=== PATIENT | male | born 1975 | race African-American/Black ===

== ENCOUNTER 2016-07-11 07:03 | Outpatient (RCR) | payer BC | END 2016-07-16 | LOC: M PT 07:03 | PROVIDERS: ATTEND Student in an Organized Health Care Education/Training Program | DX: Z51.89 Encounter for other specified aftercare (principal); M17.0 Bilateral primary osteoarthritis of knee ==

== ENCOUNTER → 2016-08-16 | Outpatient (RCR) | payer BC | LOC: M PT 07-18 07:35 | PROVIDERS: ATTEND Student in an Organized Health Care Education/Training Program | DX: Z51.89 Encounter for other specified aftercare (principal); M17.0 Bilateral primary osteoarthritis of knee ==

== ENCOUNTER 2016-08-23 07:18 | Outpatient (RCR) | payer BC | END 2016-09-15 | disposition home or self-care (01) | LOC: M PT 07:18 | PROVIDERS: ATTEND Student in an Organized Health Care Education/Training Program | DX: Z51.89 Encounter for other specified aftercare (principal); M17.0 Bilateral primary osteoarthritis of knee ==

== ENCOUNTER 2019-04-15 17:15 | Emergency (ER) | payer BC, SELFPAY ==
[~2019-04-15] VITALS: Ht 188 cm; Wt 127.6 kg
--- NOTE | 2019-04-15 20:52 | REPVR ---
PROCEDURE INFORMATION: Exam: US Duplex Right Lower Extremity Veins, Limited Exam date and time: 04/15/2019 8:38 PM Age: 43 years old Clinical indication: Pain; Leg, lower; Right; Additional info: Leg, foot, calf pain TECHNIQUE: Imaging protocol: Real-time Duplex ultrasound of the Right Lower Extremity with 2-D cavazos scale, color Doppler flow and spectral waveform analysis with image documentation. Limited exam was focused on the right lower extremity veins. COMPARISON: No relevant prior studies available. FINDINGS: Right deep veins: Unremarkable. The common femoral, femoral, proximal profunda femoral and popliteal veins are patent without thrombus. Normal Doppler waveforms. Normal compressibility and/or augmentation response. Right superficial veins: Unremarkable. Saphenofemoral junction is patent without thrombus. Soft tissues: Unremarkable. IMPRESSION: No DVT of the right lower extremity. Electronically signed by: Xavier Chavira On 04/15/2019 20:51:31 PM
[2019-04-15] MEDS ORDERED: NAPR-837 PO (21:54)
[2019-04-15] MEDS ORDERED: ANEC4CRE3 TOP (21:54)
[2019-04-15 21:57] VITALS: BP 120/83
[2019-04-15] MEDS ORDERED: NAPROXEN 250 MG TAB PO ONE (22:00)
--- NOTE | 2019-04-16 02:09 | REP ---
Clinical: Pain and tenderness. Technique: AP and lateral views of the right ankle. Findings: Generalized age-related changes are appreciated. No acute fracture dislocation. No soft tissue swelling. Ankle mortise appears intact. Impression: Nonspecific age-related changes. Electronically Signed by Terry Moore MD 04/16/2019 02:01 A
--- NOTE | 2019-04-17 02:13 | REP ---
Clinical: Pain and tenderness Technique: AP, lateral, bilateral oblique views right foot . Findings: The osseous structures and joint spaces are intact and essentially age-appropriate. There is no evidence for acute fracture or dislocation. Surrounding soft tissues are unremarkable. No subcutaneous emphysema or radiodense foreign body. Impression: Age-appropriate right foot series. No obvious acute or significant pathology appreciated by radiographic evaluation. Electronically Signed by Terry Moore MD 04/17/2019 02:05 A
== END 2019-04-15 22:10 | disposition home or self-care (01) ==
LOC: M ED 17:15
DX: M77.31 Calcaneal spur, right foot (principal); M25.571 Pain in right ankle and joints of right foot; Z88.5 Allergy status to narcotic agent

== ENCOUNTER → 2021-03-31 | Outpatient (REF) ==
[~2021-03-31] MED LIST: ANEC4CRE3 TOP; NAPR-837 PO
== END ==
LOC: M LABSMTC 09:46
PROVIDERS: ATTEND Pediatrics
DX: Z20.822 Contact with and (suspected) exposure to COVID-19 (principal)

== ENCOUNTER 2024-01-29 15:02 | Emergency (ER) | payer SELFPAY ==
[~2024-01-29] VITALS: Ht 188 cm; Wt 122.9 kg
[2024-01-29] MEDS: methocarbamoL 500 MG TAB PO ONE (19:48)
[2024-01-29] MEDS: KETOROLAC 60MG 2ML VIAL IM ONE (19:48)
[2024-01-29] MEDS ORDERED: METH-1164 PO (22:19)
[2024-01-29] MEDS ORDERED: IBUP-1022 PO (22:19)
[2024-01-29] MEDS ORDERED: PRED20TA PO (22:19)
[2024-01-29 22:26] VITALS: BP 137/65; TEMP 97.8; O2SAT 98
== END 2024-01-29 22:28 | disposition home or self-care (01) ==
LOC: M ED 15:02
DX: M54.50 Low back pain, unspecified (principal); V49.40XA Driver injured in collision with unspecified motor vehicles in traffic accident, initial encounter; Y92.410 Unspecified street and highway as the place of occurrence of the external cause; Y93.89 Activity, other specified; Y99.9 Unspecified external cause status; Z88.5 Allergy status to narcotic agent; Z79.1 Long term (current) use of non-steroidal anti-inflammatories (NSAID); Z79.52 Long term (current) use of systemic steroids; Z79.899 Other long term (current) drug therapy
CPT/HCPCS: 72110; 96372; 99283; J1885

== ENCOUNTER 2024-06-11 08:26 | Outpatient (RCR) | payer OTHER ==
[~2024-06-11 08:26] MED LIST changes: +IBUP-1022 PO; +METH-1164 PO; +PRED20TA PO
== END 2024-06-16 ==
LOC: M PT 08:26
PROVIDERS: ATTEND Physician Assistant Surgical
DX: M54.50 Low back pain, unspecified (principal); M54.2 Cervicalgia

== ENCOUNTER 2024-07-15 09:07 | Outpatient (RCR) | payer OTHER | END 2024-07-16 | LOC: M PT 09:07 | PROVIDERS: ATTEND Physician Assistant Surgical | DX: M54.50 Low back pain, unspecified (principal); M54.2 Cervicalgia ==

== ENCOUNTER → 2024-10-24 | Outpatient (REF) | payer OTHER, MEDICAID ==
[2024-10-24 17:53] LABS: BASO # 0.0 10^3/uL (0.0-0.2); BASO % 0.8 % (0.0-1.0); EOS # 0.1 10^3/uL (0.0-0.5); EOS % 1.7 % (0.0-3.0); LYMPH # 1.9 10^3/uL (1.5-5.0); LYMPH % 36.2 % (24.0-44.0); MONO # 0.5 10^3/uL (0.0-0.8); MONO % 9.3 % (2.0-8.0); NEUTROPHILS # 2.7 10^3/uL (1.5-8.5); NEUTROPHILS % 51.8 % (36.0-66.0); PLATELET COUNT, AUTOMATED 220 10^3/uL (150-450)
[2024-10-24 18:28] LABS: IRON (FE) 62.0 UG/DL (65-175); PERCENT SATURATION 20.3 % (19.7-50.0)
== END ==
LOC: M LAB REF 17:17
PROVIDERS: ATTEND Orthopaedic Surgery
DX: M25.562 Pain in left knee (principal)

== ENCOUNTER → 2024-10-24 | Outpatient (REF) | payer OTHER, MEDICAID ==
[2024-10-24 17:57] LABS: BASO # 0.0 10^3/uL (0.0-0.2); BASO % 0.6 % (0.0-1.0); EOS # 0.1 10^3/uL (0.0-0.5); EOS % 2.0 % (0.0-3.0); LYMPH # 2.0 10^3/uL (1.5-5.0); LYMPH % 36.4 % (24.0-44.0); MONO # 0.5 10^3/uL (0.0-0.8); MONO % 9.6 % (2.0-8.0); NEUTROPHILS # 2.8 10^3/uL (1.5-8.5); NEUTROPHILS % 51.4 % (36.0-66.0); PLATELET COUNT, AUTOMATED 213 10^3/uL (150-450)
[2024-10-24 18:53] LABS: ALT/SGPT 25 U/L (7.0-40); AST/SGOT 25 U/L (<34); CALCIUM LEVEL 9.0 MG/DL (8.5-10.1); CARBON DIOXIDE LEVEL 30 MMOL/L (20-31); CHLORIDE LEVEL 108 MMOL/L (98-107); CHOLESTEROL LEVEL 156 MG/DL (<200); CHOLESTEROL RISK RATIO 4.67 (<5); CREATININE FOR GFR 1.01 MG/DL (0.70-1.30); GLOMERULAR FILTRATION RATE > 90.0 (>60); LDL CHOLESTEROL 87.8 MG/DL (<100); NON-HDL-C 122.6 MG/DL; POTASSIUM SERUM 4.6 MMOL/L (3.5-5.1); SODIUM LEVEL 145 MMOL/L (136-145); TRIGLYCERIDES LEVEL 174 MG/DL (<150)
== END ==
LOC: M LAB REF 17:16
PROVIDERS: ATTEND Student in an Organized Health Care Education/Training Program
DX: Z00.00 Encounter for general adult medical examination without abnormal findings (principal)